=== PATIENT | female | born 1990 | race Caucasian/White ===

== ENCOUNTER 2020-07-06 20:52 | Inpatient (IN) ==
[2020-07-06] MEDS ORDERED: ONDANSETRON 4 MG/2 ML VIAL IV PRN (21:14)
[2020-07-06] MEDS ORDERED: LACTATED RINGERS 500 ML IV PRN (21:14)
[2020-07-06 21:59] LABS: Basophils % 0.2 % (0.0-0.8); Eosinophils # 0.1 10*3/uL (0.0-0.87); Eosinophils % 0.5 % (0.00-10.9); Hematocrit 37.6 VOL% (35.7-47.0); Hemoglobin 12.2 GM/DL (12.0-16.0); Immature Granulocytes % 0.4 %; Immature Granulocytes Absolute 0.04 #; Lymphocytes # 1.8 10*3/uL (1.4-4.0); Lymphocytes % 18.1 % (21.3-54.2); Mean Corpuscular HGB Conc 32.4 GM/DL (32-36); Mean Corpuscular Volume 85.6 FL (87-102); Mean Platelet Volume 11.4 FL (9.6-12.0); Monocytes % 6.5 % (1.7-12.7); Neutrophils % 74.3 % (38.7-73.9); Platelet Count 211 T/CUMM (130-400); Red Blood Count 4.39 MC/CUMM (3.8-5.5); Red Cell Distribution Width 14.6 % (9.3-17.3); White Blood Count 10.1 T/CUMM (4-12)
[2020-07-06] MEDS: LACTATED RINGERS 1,000 ML IV SCH (22:20)
[2020-07-06 23:26] LABS: Alanine Aminotransferase 10 U/L (13-56); Albumin 2.5 G/DL (3.4-5.0); Aspartate Amino Transferase 11 U/L (0-37); Bilirubin,Total < 0.39 MG/DL (0.2-1.0); Blood Urea Nitrogen 8 MG/DL (7-18); Calcium 8.9 MG/DL (8.5-10.1); Carbon Dioxide 24 MMOL/L (21-32); Estimated Glom Filtration Rate 182 ML/MIN; Glucose 98 MG/DL (74-106); Osmolality,Calculated 278.3 MOS/KG (273-304); Potassium 3.4 MMOL/L (3.5-5.1); Sodium 141 MMOL/L (136-145); Total Protein 6.5 G/DL (5.0-7.5)
[2020-07-06 23:27] LABS: Alkaline Phosphatase 119 U/L (45-117)
[2020-07-07] MEDS: MEPERIDINE 50 MG/1 ML VIAL IV PRN ×2 (04:42→07:22)
[2020-07-07] MEDS: LACTATED RINGERS 1,000 ML IV SCH ×2 (07:27→20:54)
[2020-07-07] MEDS: BUTORPHANOL 2 MG/ML VIAL IV PRN ×2 (09:44→13:15)
[2020-07-07] MEDS ORDERED: ACETAMINOPHEN 500 MG TABLET PO ONE (15:58)
[2020-07-07] MEDS ORDERED: ZALEPLON 5 MG CAPSULE PO PRN (15:58)
[2020-07-07] MEDS ORDERED: LACTATED RINGERS 1,000 ML IV ONE (16:25)
[2020-07-07] MEDS ORDERED: CITRIC ACID/SODIUM CITRATE 30 ML UDCUP PO ONE (16:25)
[2020-07-07] MEDS ORDERED: FAMOTIDINE 20 MG/2 ML VIAL IV ONE ×2 (16:25→16:39)
[2020-07-07] MEDS ORDERED: ePHEDrine 50 MG/ML VIAL IV PRN (16:26)
[2020-07-07] MEDS ORDERED: PROMETHAZINE 25 MG/1 ML VIAL IM ONE (16:26)
[2020-07-07] MEDS ORDERED: NALOXONE 0.4 MG/ML VIAL IV PRN (16:26)
[2020-07-07] MEDS ORDERED: hydrOXYzine HCL 25 MG/1 ML VIAL IM PRN (16:26)
[2020-07-07] MEDS ORDERED: diphenhydrAMINE 50 MG/1 ML VIAL IV PRN ×2 (16:26)
[2020-07-07] MEDS ORDERED: LACTATED RINGERS 250 ML IV PRN (16:26)
[2020-07-07] MEDS ORDERED: fentaNYL 2 MCG/ROPIV 0.2% EPID 100 ML EPIDURAL SCH (16:30)
[2020-07-07] MEDS ORDERED: ePHEDrine 50 MG/ML VIAL ONE (16:38)
[2020-07-07] MEDS ORDERED: CITRIC ACID/SODIUM CITRATE 30 ML UDCUP ONE (16:38)
[2020-07-07] MEDS ORDERED: fentaNYL 2 MCG/ROPIV 0.2% EPID 100 ML EPIDURAL ONE (16:39)
[2020-07-07] MEDS ORDERED: OXYTOCIN/LR 20 UNIT/1,000 ML BAG IV SCH (18:00)
[2020-07-07 19:02] LABS: Cord Venous Blood HCO3 21.8 MMOL/L; Cord Venous Blood PCO2 50.4 MMHG; Cord Venous Blood PO2 22.8
[2020-07-07] MEDS ORDERED: miSOPROStoL 200 MCG TABLET ONE (19:15)
[2020-07-07] MEDS ORDERED: SODIUM CHLORIDE 0.9% 1,000 ML IV PRN (19:31)
[2020-07-07] MEDS ORDERED: ONDANSETRON 4 MG/2 ML VIAL IV PRN (20:21)
[2020-07-07] MEDS ORDERED: OXYTOCIN/LR 20 UNIT/1,000 ML BAG IV ONE (20:21)
[2020-07-07] MEDS ORDERED: RHO(D) IMMUNE GLOBULIN 300 MCG SYRINGE IM ONE (20:21)
[2020-07-07] MEDS ORDERED: HYDROCORTISONE 2.5% RECTAL CREAM 30 GM TUBE TOP PRN (20:21)
[2020-07-07] MEDS ORDERED: ACETAMINOPHEN 325 MG TABLET PO PRN (20:21)
[2020-07-07] MEDS ORDERED: oxyCODONE/ACETAMINOPHEN 5-325 MG TABLET PO PRN (20:21)
[2020-07-07] MEDS ORDERED: DIPH/TET/ACEL PERT BOOSTER VACCINE 0.5 ML VIAL IM ONE (20:21)
[2020-07-07] MEDS ORDERED: BISACODYL 10 MG SUPP RECTAL PRN (20:21)
[2020-07-07] MEDS ORDERED: LANOLIN 50% CREAM 0.3 OZ TUBE TOP PRN (20:21)
[2020-07-07] MEDS ORDERED: MEASLES/MUMPS/RUBELLA VACCINE 0.5 ML VIAL SUBCUT ONE (20:21)
[2020-07-07] MEDS ORDERED: BENZOCAINE 20%/MENTHOL 0.5% SPRAY 56 GM CAN TOP PRN (20:21)
[2020-07-07] MEDS ORDERED: WITCH HAZEL PADS 100/JAR TOP PRN (20:21)
[2020-07-07] MEDS ORDERED: HETASTARCH 6% 500 ML IV ONE (20:24)
[2020-07-08] MEDS: IBUPROFEN 800 MG TABLET PO PRN ×2 (00:26→06:26)
[2020-07-08 06:12] LABS: Basophils % 0.2 % (0.0-0.8); Eosinophils % 0.1 % (0.00-10.9); Hematocrit 35.9 VOL% (35.7-47.0); Immature Granulocytes % 0.3 %; Immature Granulocytes Absolute 0.04 #; Lymphocytes # 1.6 10*3/uL (1.4-4.0); Lymphocytes % 12.6 % (21.3-54.2); Mean Corpuscular HGB Conc 33.4 GM/DL (32-36); Mean Corpuscular Volume 84.3 FL (87-102); Mean Platelet Volume 11.3 FL (9.6-12.0); Monocytes % 6.8 % (1.7-12.7); Platelet Count 162 T/CUMM (130-400); Red Blood Count 4.26 MC/CUMM (3.8-5.5); Red Cell Distribution Width 15.5 % (9.3-17.3); White Blood Count 12.7 T/CUMM (4-12)
[2020-07-08] MEDS: DOCUSATE SODIUM 100 MG CAPSULE PO SCH ×4 (08:21→21:24)
[2020-07-08] MEDS: oxyCODONE/ACETAMINOPHEN 5-325 MG TABLET PO PRN ×2 (11:04→19:56)
[2020-07-09 09:58] VITALS: BP 119/69
[2020-07-09] MEDS: DOCUSATE SODIUM 100 MG CAPSULE PO SCH (11:30)
== END 2020-07-09 13:30 | disposition home or self-care (01) | DRG 807 ==
LOC: N.LDOUT 20:52 → N.LD 20:54 → N.OB 07-08 08:56
PROVIDERS: ADMIT Specialist; ATTEND Specialist